=== PATIENT | female | born 1995 ===

== ENCOUNTER → 2017-09-22 | Outpatient (CLI) | payer SELFPAY ==
--- NOTE | 2017-09-22 18:53 | Diagnostic Imaging Report ---
EXAMINATION: Pelvic ultrasound. INDICATION: Pelvic pain. FINDINGS: The previous pelvic ultrasound exam performed on 12/23/2015 noted subcentimeter follicles associated with each ovary but failed to show any sign of an acute abnormality. On this study, the uterus is nongravid and not enlarged measuring 6.8 x 4.0 x 2.8 cm. The endometrial lining is not thickened measuring 4 mm. There is no focal mass involving the uterus to suggest a fibroid. As on the prior exam, there are multiple subcentimeter follicles associated with each ovary. There is no solid pelvic mass or free fluid collection evident. IMPRESSION: There is no evidence for an acute pelvic abnormality. When compared to the prior study, there does not appear to have been any significant change. Dictated by: Dictated on workstation # [id number]
== END ==
LOC: RAD 14:59
PROVIDERS: ATTEND Obstetrics & Gynecology
DX: N92.0 Excessive and frequent menstruation with regular cycle (principal)
CPT/HCPCS: 76830; 76856